=== PATIENT | female | born 1975 | race Caucasian/White ===

== ENCOUNTER 2022-04-13 11:22 | Emergency (ER) | payer OTHER ==
[~2022-04-13 11:22] MED LIST: COMPAZINE10 MG PO; IMITREX50 MG PO
[2022-04-13 13:24] LABS: BASOPHIL 0.8 % (0-2); HCT 29.4 % (37.0-47.0); HGB 7.6 g/dl (12.5-16.0); LYMPHOCYTE 30.4 % (15-48); MCH 18.5 pg (25.0-31.0); MCHC 25.9 g/dL (32.0-36.0); MCV 71.5 fL (78.0-100.0); MONOCYTE 5.2 % (0-12); MPV 10.8 fL (6.0-9.5); NEUTROPHIL 61.3 % (41-80); NRBC 0; PLT 273 K/uL (150-400); RBC 4.11 M/uL (4.20-5.40); RDW 20.8 % (11.5-14.0); WBC 6.5 K/uL (4.0-10.5)
[2022-04-13 13:41] LABS: BUN/CREAT RATIO (CALC) 10.8 RATIO; CREATININE 0.74 mg/dL (0.51-0.95)
[2022-04-13 15:17] LABS: BILIRUBIN NEGATIVE (NEGATIVE); BLOOD NEGATIVE Ery/uL (NEGATIVE); CLARITY CLEAR (CLEAR); COLOR YELLOW (YELLOW); GLUCOSE (U) NORMAL (NORMAL); LEUKOCYTES NEGATIVE Leu/uL (NEGATIVE); NITRITE NEGATIVE (NEGATIVE); PROTEIN NEGATIVE (NEGATIVE); SPECIFIC GRAVITY <=1.005 (1.001-1.030); UROBILINOGEN 0.2 mg/dL (0.2-1.0); pH 5.5 (5.0-9.0)
[2022-04-13] MEDS ORDERED: BENTYL10 MG PO (16:54)
[2022-04-13] MEDS ORDERED: FEOSOL325 MG PO (16:54)
== END 2022-04-13 17:10 | disposition home or self-care (01) ==
LOC: FER 11:22
PROVIDERS: Emergency Medicine; Nurse Practitioner Family
DX: D64.9 Anemia, unspecified (principal); R10.9 Unspecified abdominal pain; Z28.310 Unvaccinated for COVID-19
CPT/HCPCS: 36415; 80048; 81003; 85025; 99284; J7120